=== PATIENT | male | born 1985 | race Caucasian/White ===

== ENCOUNTER 2017-04-22 06:54 | Day surgery (SDCO) | payer OTHER ==
[~2017-04-22] VITALS: Ht 172.7 cm; Wt 75.9 kg
[2017-04-22 07:19] LABS: BASOPHIL 0.2 % (0-2); EOSINOPHIL 0.3 % (0-5); HGB 15.2 g/dl (13.2-18.0); LYMPHOCYTE 22.3 % (15-48); MCHC 36.2 g/dL (32.0-36.0); MCV 82.8 fL (78.0-100.0); MONOCYTE 11.8 % (0-12); MPV 10.7 fL (6.0-9.5); NEUTROPHIL 65.4 % (41-80); PLT 213 K/uL (150-400); RBC 5.07 M/uL (4.70-6.00); WBC 6.4 K/uL (4.0-10.5)
[2017-04-22 07:22] LABS: BILIRUBIN NEGATIVE (NEGATIVE); BLOOD 2+ Ery/uL (NEGATIVE); CLARITY CLEAR (CLEAR); COLOR YELLOW (YELLOW); GLUCOSE (U) 3+ mg/dL (NORMAL); KETONE (U) NEGATIVE (NEGATIVE); LEUKOCYTES NEGATIVE Leu/uL (NEGATIVE); NITRITE NEGATIVE (NEGATIVE); PROTEIN NEGATIVE (NEGATIVE); SPECIFIC GRAVITY <=1.005 (1.001-1.030); UROBILINOGEN 0.2 mg/dL (0.2-1.0)
[2017-04-22 07:33] LABS: AMPHETAMINES NEGATIVE (NEGATIVE); BARBITURATES NEGATIVE (NEGATIVE); BENZODIAZEPINES NEGATIVE (NEGATIVE); COCAINE NEGATIVE (NEGATIVE); MARIJUANA (THC) NEGATIVE (NEGATIVE); METHADONE NEGATIVE (NEGATIVE); TRICYCLIC ANTIDEPRESSANT NEGATIVE (NEGATIVE)
[2017-04-22 07:37] LABS: ALBUMIN 4.4 g/dL (3.5-5.0); CREATININE 0.9 mg/dL (0.7-1.2); GLOBULIN (CALCULATION) 2.6 g/dL (2.2-4.2); POTASSIUM 3.8 mmol/L (3.5-5.1)
--- NOTE | 2017-04-22 12:31 | NUR ---
PATIENT HAS THE FOLLOWING MONEY IN HIS PANTS POCKETS, 25 - $100 = $2,500 1 - $50.00 = $50 8 - $20.00 = $160.00 2 - $1.00 = $ $2.00 TOTAL: $2,712.00 PATIENT DID NOT WANT TO GIVE TO US TO LOCK UP. WITNESS TO THE COUNT: JUVENAL MONTENEGRO AND MYSELF, KARENA KOCH
[2017-04-22] MEDS ORDERED: METFORMIN HCL1000 MG PO (18:33)
[2017-04-22] MEDS ORDERED: RISPERDAL3 MG PO (18:34)
[2017-04-22] MEDS ORDERED: TRAZODONE 100M100 MG PO (18:34)
[2017-04-22] MEDS ORDERED: SEROQUEL 100MG100 MG PO (18:34)
--- NOTE | 2017-04-22 23:32 | NUR ---
THIS RN IS DESPATCHING AND RECEIVING CLERK ON 04/22 7P - 04/23 7A. NOTIFIED BY HETAL DUNHAM THAT PT WAS AWAITING D/C AND PT'S NEXT OF KIN HAD STATED THAT HE WOULD BE HERE BY 8PM TO BEFORE AND AFTER [employer]CHO[employer] WORKER PATIENT FOR D/C. HETAL DUNHAM HAD CALLED PT'S FATHER AT 9:30PM AND 11PM AND LEFT MESSAGES. PT IS CONTENT AND COOPERATIVE; HOWEVER, PT IS A&O X 1-2. PT WAS FOUND SITTING IN AN EMPTY PATIENT ROOM BY SIDNEY PALOMINO. CANDELARIO ASKED PT TO RETURN TO HIS ROOM AND PT COMPLIED. PT HAS SUBSTANTIAL PSYCHIATRIC ISSUES, INCLUDING PARANOID-SCHIZOPHRENIA, PER DAY SHIFT RN CONVERSATION WITH PARENT. PER PT PARENT, THEY HAD FILED A MISSING PERSONS REPORT OF PATIENT. SPOKE TO JACY, EXTRUSION BENDER OF M/S, AT 11:25 PM. DISCUSSED SITUATION. CALLED FATHER OF PT AND LEFT MESSAGE. CALLED ALICJA HOLT AND LEFT MESSAGE. PT AWAITING DISCHARGE AND CONTENT AT THIS TIME. PT FED SNACK AND RESTING. WILL MONITOR CLOSELY AND ENSURE PT SAFETY. IF ANY ISSUES, WILL ASSIGN 1:1 SITTER. FREQUENT ROUNDING.
--- NOTE | 2017-04-23 13:28 | NUR ---
FATHER IN TO JOURNAL BOX INSPECTOR PT REVIEWED DISCHARGE INSTRUCTIONS, MEDICATIONS AND APPT INFORMATION WITH FATHER PT UNINTERESTED IN EDUCATION FATHER STATES HE HAS ARRANGED APPOINTMENTS IN [place]
== END 2017-04-23 13:47 | disposition home or self-care (01) ==
LOC: FER 06:54 → FMS 09:08
PROVIDERS: Emergency Medicine Emergency Medical Services; ADMIT Internal Medicine Nephrology
DX: S06.0X0A Concussion without loss of consciousness, initial encounter (principal); V49.9XXA Car occupant (driver) (passenger) injured in unspecified traffic accident, initial encounter; E11.9 Type 2 diabetes mellitus without complications; Z79.84 Long term (current) use of oral hypoglycemic drugs; M50.322 Other cervical disc degeneration at C5-C6 level; Z23 Encounter for immunization
CPT/HCPCS: 36415; 70450; 71260; 72125; 80053; 80305; 81001; 82150; 82962; 83605; 83690; 84484; 85025; 90471; 90715; 93005; G0378; G0480; J2270; J2405; Q9967